=== PATIENT | male | born 1995 | race Caucasian/White ===

== ENCOUNTER 2023-12-17 08:23 | Emergency (ER) | payer BC, SELFPAY ==
[2023-12-17 08:44] VITALS: BP 153/91
[2023-12-17 09:35] VITALS: BP 100/86; BMI 24.6
[2023-12-17] MEDS: TORADOL 15 MG IV (09:58)
[2023-12-17 10:00] VITALS: BP 117/82
[2023-12-17 10:05] LABS: % Basophils 0.6 % (0-2); % Eosinophils 1.2 % (0-6); % Immature Granulocytes 0.4 % (0-0.5); % Lymphocytes 29.9 % (20.5-51.1); % Monocytes 11.8 % (1.7-9.3); % Neutrophils 56.1 % (42.2-75.2); Absolute Eosinophils 0.1 10^3/uL (0-0.7); Absolute Lymphocytes 1.5 10^3/uL (1.2-3.4); Absolute Monocytes 0.6 10^3/uL (0.1-0.6); Absolute Neutrophils 2.9 10^3/uL (1.4-6.5); Hematocrit 47.7 % (39.0-52.0); Hemoglobin 17.2 g/dL (13.0-18.0); Mean Corp Hgb Conc. 36.1 g/dL (33.0-37.0); Mean Corpuscular Hgb 30.8 pg (27.0-31.0); Mean Corpuscular Volume 85.5 fL (80.0-94.0); Mean Platelet Volume 10.6 fL (7.4-10.4); Nucleated Red Blood Cells % 0 % (-); Platelet Count 223 10^3/uL (130-400); Red Blood Cell Count 5.58 10^6/uL (4.70-6.10); Red Cell Dist. Width 11.6 % (11.5-14.5); White Blood Cell Count 5.1 10^3/uL (4.8-10.8)
[2023-12-17 10:18] LABS: Blood Urea Nitrogen 17 mg/dl (9-20); Calcium 10.2 mg/dl (8.4-10.2); Carbon Dioxide 20 mmol/L (22-30); Chloride 106 mmol/L (98-107); Estimated Creatinine Clearance > 125 ml/min; Glucose 92 mg/dl (70-99); Sodium 139 mmol/L (135-145); Troponin I < 0.012 ng/ml; eGFR > 60.00
[2023-12-17 11:00] VITALS: BP 126/89
--- NOTE | 2023-12-17 12:51 | ED.GENMED ---
History of Present Illness
General
Chief Complaint: Chest Pain
Source: patient
Exam Limitations: none
Time Seen by Provider: 12/17/23 09:29
Travel History
Have you had any contact with someone who has COVID-19?: No
Do you have any symptoms of coronavirus? Fever > 100 degrees, chills, cough, shortness of breath, sore throat, loss of taste or smell, muscle aches, or headache?: No
History of Present Illness
History of Present Illness:
28-year-old male presents with left-sided chest pain. Patient has had some arm pain for some time but states he has pain in the left chest when he breathes. He states when he lays back it hurts worse. He feels short of breath. No fevers. No
hemoptysis. No leg swelling.
Past History
Past History
ED Past Medical History: None
Social History
Tobacco: Vaping
Phy Exam
Physical Exam
Physical Exam:
CONSTITUTIONAL Patient alert and oriented to person, place and time. Well-appearing. Vital signs reviewed.
HEAD atraumatic, normocephalic.
EYES eyelids normal to inspection, Pupils equally round and reactive to light, Extraocular muscles intact, Conjunctiva normal, Sclera normal.
NECK normal range of motion, Trachea midline, no jugular venous distention.
RESPIRATORY CHEST No respiratory distress noted, Chest expansion equal, Bilateral breath sounds clear.
CARDIOVASCULAR regular rate and rhythm, Heart sounds normal.
BACK normal inspection, no obvious deformities, no rash
UPPER EXTREMITY range of motion normal, Motor strength normal, no cyanosis, no edema.
LOWER EXTREMITY range of motion normal, Motor strength normal, no cyanosis, no edema.
NEURO Speech normal, No focal motor deficits, Vicki coma scale 15, Memory normal, Cranial Nerves intact to screening exam.
SKIN skin warm, dry, and normal in color.
PSYCHIATRIC patient oriented to person place and time, Normal affect.
Scores
Heart Score for Chest Pain Patients
STEMI patient?: Not applicable
Course
Orders/Labs/Results
Orders:
Orders
12/17/23 08:26
EKG [Electrocardiogram (*1)] Urgent
Reason for Study: Chest Pain
EKG- Treatment ONCE
12/17/23 09:43
Basic Metabolic Panel Urgent
Complete Blood Count/With Diff Urgent
Troponin I Urgent
12/17/23 09:54
CT Chest Pe Study Urgent
Comment:
Reason For Exam: L pleuritic cp, sob, tachycardia
12/17/23 09:57
Ketorolac [Toradol] 15 mg .ROUTE .STK-MED ONE
12/17/23 09:58
Ketorolac [Toradol] 15 mg IV NOW STA
12/17/23 13:15
Heparin 10541 Units/250 ml 25,000 units in 250 ml IV PER PROTOCOL
Weight to be used for heparin protocol in kilograms (kg):: 79.9
Protocol:: DVT/PE
PTT Goal Range to be used:: PTT 73 to 111 seconds
Order type:: Initial
INITIAL Infusion Dose (UNITS/KG/hr) & then follow protocol:: 18 units/kg/hr
Infusion Dose in UNITS/hr & then follow protocol (UNITS/hr):: 1,400
INFUSION RATE in mL/hr & then follow protocol (mL/hr):: 14
For DVT/PE algorithm, re-bolus for low PTT?: Yes
PTT less than or equal to 64 seconds:: Re-bolus 80 units/kg (max 10,000units). Increase by 300 units/hr
(+ 3mL/hr)
PTT 64.1 to 72.9 seconds:: Re-bolus 40 units/kg (max 5,000 units). Increase by 200 units/hr
(+ 2mL/hr)
PTT 73 to 111 seconds:: Target Range. No change in rate.
PTT 111.1 to 130.9 seconds:: Decrease rate by 200 units/hr (- 2 mL/hr)
PTT 131 to 199.9 seconds:: HOLD for 1 hr. Then decrease by 200 units/hr (- 2mL/hr)
PTT greater than or equal to 200 seconds:: HOLD for 2 hrs & Notify Provider. Then decrease by 300 units/hr
(- 3mL/hr)
Lab follow-up:: Each change, PTT q6h until 2 consecutive are therapeutic. Then
PTT daily.
12/17/23 13:30
PTT Urgent
Comment: Obtain baseline before beginning heparin infusion if not already collected
12/17/23 14:27
Heparin 3,200 units IV PRN PRN
12/17/23 14:28
Heparin 6,400 units IV PRN PRN
12/17/23 14:36
Apixaban [Eliquis] 5 mg PO NOW STA
12/17/23 14:40
Apixaban [Eliquis] 10 mg PO NOW STA
Abnormal Lab Results
12/17/23
09:43
MPV 10.6 H fL
(7.4-10.4)
Monocytes % 11.8 H %
(1.7-9.3)
Carbon Dioxide 20 L mmol/L
(22-30)
12/17/23 09:43
12/17/23 09:43
Vital Signs
Initial and Last Documented VS:
Initial Vital Signs
Temp Pulse Resp BP Pulse Ox
98.2 F 102 22 153/91 99
12/17/23 08:44 12/17/23 08:44 12/17/23 08:44 12/17/23 08:44 12/17/23 08:44
Last Documented Vital Signs
Temp Pulse Resp BP Pulse Ox
98.2 F 74 16 125/83 99
12/17/23 08:44 12/17/23 13:32 12/17/23 11:00 12/17/23 13:32 12/17/23 13:32
MDM/Problems Addressed
Differential Diagnosis Includes:
Pulmonary embolism, pleuritis, pneumonia, pneumothorax
MDM/Problems Addressed:
Pulmonary embolism
*Radiology
Radiology exam reviewed: preliminary read by ED provider (No obvious pneumothorax) and radiology read reviewed
*Pulse Oximetry
Patient hypoxic: no
*EKG
Interpreted by ED Provider?: Yes
Interpretation: abnormal
Rate: tachycardiac
Rhythm: sinus
Jasper: normal axis
QRS Pattern: normal QRS
Ischemia: no ischemia
*Cake Stripper Interpretation
Rate: normal
Interpretation: normal
Rhythm: sinus
*Critical Care Note
Total Time (30-74mins, 75-104mins- exclusive of procedures): 30 minutes
Data Reviewed
Source: patient and family (Father)
Patient Management
Discussion with other providers: Hospitalist
Escalation/DeEscalation of care consider admission/obs:
Patient is hemodynamically stable but does have pulmonary embolism. No primary care doctor. IV heparin. Admit
Update Note
Update Note:
I was able to speak with pulmonology office who planned a follow-up for tomorrow at 10 AM. I think this is reasonable as the patient is quite stable. Seen by case management and given coupons for Eliquis
ED Attending Note
-
Portions of this chart may have been created with voice recognition software.� Occasional wrong word or��sound alike� substitutions may have occurred due to the inherent limitations of voice recognition software.
Discharge Plan
Departure
Patient Disposition: Home (Routine Discharge)
Date of Disposition: 12/17/23
Time of Disposition: 12:51
Admit to: Telemetry
Patient with high blood pressure during this ER visit?: No
Discharge Problem:
Pulmonary embolism
Instructions: Pulmonary embolism (blood clot in the lungs)
Prescriptions:
New
Eliquis DVT-PE Treat 30D Start 5 mg (74 tabs) tablets,dose pack
5 mg PO ONCE Qty: 74 0RF
Rx Instructions:
10mg BID x 7 days then 5mg BID
No Action
naproxen sodium [Aleve] 220 mg Tablet
440 mg PO HSPRN PRN (Reason: mild pain)
Referrals:
Yosef Nichols MD [Active] -
NONE,* [Family Provider] -
Activity Restrictions/Additional Instructions:
Return immediately for bleeding of any kind, trauma of any kind, shortness of breath, chest pain or any other concerns. Please see pulmonology tomorrow and show up at the office at 9:30 AM.
Interventions
Interventions:
*Risk Screen - Suicide Last Done: 12/17/23 08:44
*General Assessment Last Done: 12/17/23 08:44
*Neglect/Abuse Screening Last Done: 12/17/23 08:44
ED- Fall Risk Assessment Last Done: 12/17/23 09:35
*ED COVID-19 Vaccine History Last Done: 12/17/23 09:35
*Nursing Disposition Last Done: 12/17/23 15:07
ED- Cardiac Assessment Last Done: 12/17/23 09:35
Discharge Date and Time
Discharge Date/Time: 12/17/23 15:08
[2023-12-17 13:32] VITALS: BP 125/83
--- NOTE | 2023-12-17 13:32 | HPS.HSE ---
Family Physician
-
Family Physician: * NONE
Chief Complaint
-
Chest pain x 1 week
History of Present Illness
28-year-old male complaining of left-sided chest pain through to his back and increased with inspiration for the past week. He states he woke up at 1 AM with severe pain. He also complains of some shortness of breath. He reports 1 week ago he was
seen by cardiology Dr. Lewis at [facility] and had a Holter monitor placed he has a follow-up appointment next Sunday. He denies any recent illness including flu or COVID. He denies fever, chills, palpitations, abdominal pain, nausea,
vomiting, diarrhea, urinary symptoms, injury, leg swelling. He has past medical history of nicotine vaping, cigarette smoking, MRSA skin, benign mole removal to sternal chest, tear duct opening procedure as child
Medical History
Past Medical History
Past Medical History: Reports Other (nicotine vaping, cigarette smoking, MRSA skin,)
Past Surgical History: Reports Other ( benign mole removal to sternal chest, tear duct opening procedure as child)
Social History
Tobacco: Vaping (1 pack/day x 16 years)
Alcohol: None
Drug: None
Personal: Single
Living: Alone
Employment: Employed ([employer])
Family History
Family History: Other (Father mother healthy)
Allergies / Home Medications
Allergies reflects when Allergies were last updated in [employer].
Home Medications with original date entered in [employer]
Allergy/Medication List:
Allergies
Allergy/AdvReac Type Severity Reaction Status Date / Time
sulfamethoxazole Allergy Tongue Verified 12/17/23 09:37
[From Bactrim] Swelling
trimethoprim [From Bactrim] Allergy Tongue Verified 12/17/23 09:37
Swelling
Home Medications
naproxen sodium 220 mg tablet (Aleve) 440 mg PO HSPRN PRN mild pain 12/17/23
Review of Systems
-
History Source: Patient and Family (Father at bedside)
A 12 point ROS was completed and negative except as noted: Yes
Constitutional: Denies Fever, Fatigue or Chills
EENT: Denies Sore Throat or Mouth Swelling
Respiratory: Reports Trouble Breathing (With activity); Denies Cough
Cardiac: Reports Chest Pain (Left-sided with inspiration); Denies Diaphoresis, Palpitations or Syncope
Abdomen/GI: Denies Abdominal Pain, Nausea, Vomiting, Diarrhea, Constipated or Bloody Stools
: Denies Dysuria, Frequency, Flank Pain, Incontinence, Difficulty Voiding or Urgency
Musculoskeletal: Denies Joint Pain or Edema
Skin: Denies Itching or Rash
Neurological: Denies Dizzy, Headache or Weakness
Endocrine: Reports No Symptoms
Hematologic/Lymphatic: Reports No Symptoms
Psych: Reports Calm
Physical Exam
Vital Signs
Vital Signs
Temp Pulse Resp BP Pulse Ox
98.2 F 77 16 126/89 97
12/17/23 08:44 12/17/23 11:00 12/17/23 11:00 12/17/23 11:00 12/17/23 11:00
Physical Exam
General: Comfortable and Conversant; No Fever or Chills
HEENT: NormoCephalic, Anicteric and PERRLA
Respiratory: Clear; No Wheezes, Rales or Rhonchi
Cardiac: S1/S2 and Regular Rhythm; No Murmur, Rub, Gallop or Peripheral Edema
GI: Soft, Non Tender, Non Distended, Normal Bowel Sounds and No Hepatosplenomegaly
Genito-urinary: Deferred by me
Musculoskeletal: No Clubbing, No Cyanosis and No Edema
Skin: Warm and Dry; No Rash or Jaundice
Neuro: AO x 3, No Motor Deficits, Nonfocal/grossly intact and No Sensory Deficits; No Slurred Speech or Facial Droop
Psych: Calm
Laboratory Results
-
12/17/23 09:43
12/17/23 09:43
Laboratory Results
Total Bilirubin Cancelled 12/17/23 09:43
AST Cancelled 12/17/23 09:43
ALT Cancelled 12/17/23 09:43
Alkaline Phosphatase Cancelled 12/17/23 09:43
Troponin I < 0.012 ng/ml 12/17/23 09:43
Impression/Plan
-
Impression/plan:
Admit to telemetry
Chest pain secondary to left lower lobe PE
99% RA
-Case management consult for AC therapy
CT PE study: Suspected small acute to subacute left lower lobe PE no evidence of heart strain
EKG: Sinus tach 108 bpm, QTc 452 MS otherwise normal
#Nicotine abuse
-1 pack/day x 16 years prior vaping 2 weeks ago switched to cigarettes again
Cessation advised
Full code
[2023-12-17 13:52] LABS: APTT 29.4 Sec (23.4-35.0)
--- NOTE | 2023-12-17 14:28 | CM ---
CM was consulted for Heart Health lee check. CM called patient's [facility] and confirmed $120 copay. CM updated patient. CM provided patient with 30 day free trial coupon and $10 Copay Elqiuis Coupong. patient is agreeable to medication plan. CM updated ED
physician via TT.
[2023-12-17] MEDS: ELIQUIS 10 MG PO (14:50)
== END 2023-12-17 15:08 | disposition home or self-care (01) ==
LOC: EMR 08:23
PROVIDERS: EMERGENCY PHYSICIAN Emergency Medicine
DX: I26.99 Other pulmonary embolism without acute cor pulmonale (principal); F17.290 Nicotine dependence, other tobacco product, uncomplicated
CPT/HCPCS: 99291; 96374; 71275; 80048; 84484; 85025; 85730; 93005; Q9967

== ENCOUNTER 2024-01-16 20:53 | Emergency (ER) | payer SELFPAY ==
[2024-01-16 21:03] VITALS: BP 134/96
[2024-01-16] MEDS: DILAUDID 1 MG IV (21:04)
[2024-01-16 21:07] LABS: Glucose - Point of Care 90 mg/dl (70-99)
[2024-01-16 21:13] LABS: % Basophils 0.2 % (0-2); % Eosinophils 0.1 % (0-6); % Immature Granulocytes 0.4 % (0-0.5); % Monocytes 7.7 % (1.7-9.3); % Neutrophils 77.6 % (42.2-75.2); Absolute Lymphocytes 1.5 10^3/uL (1.2-3.4); Absolute Monocytes 0.8 10^3/uL (0.1-0.6); Absolute Neutrophils 8.3 10^3/uL (1.4-6.5); Hematocrit 45.2 % (39.0-52.0); Hemoglobin 16.6 g/dL (13.0-18.0); Mean Corp Hgb Conc. 36.7 g/dL (33.0-37.0); Mean Corpuscular Hgb 30.6 pg (27.0-31.0); Mean Corpuscular Volume 83.2 fL (80.0-94.0); Mean Platelet Volume 10.3 fL (7.4-10.4); Nucleated Red Blood Cells % 0 % (-); Platelet Count 204 10^3/uL (130-400); Red Blood Cell Count 5.43 10^6/uL (4.70-6.10); Red Cell Dist. Width 12.3 % (11.5-14.5); White Blood Cell Count 10.7 10^3/uL (4.8-10.8)
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
[2024-01-16 21:15] VITALS: BP 133/92
[2024-01-16 21:22] LABS: INR 1.08
[2024-01-16 21:30] VITALS: BP 142/93
[2024-01-16 21:34] LABS: ALT (SGPT) 28 U/L (0-50); AST (SGOT) 36 U/L (17-59); Albumin 5.3 g/dl (3.5-5.0); Alkaline Phosphatase 73 U/L (38-126); Blood Urea Nitrogen 9 mg/dl (9-20); Calcium 10.3 mg/dl (8.4-10.2); Carbon Dioxide 26 mmol/L (22-30); Chloride 100 mmol/L (98-107); Glucose 102 mg/dl (70-99); Potassium 3.9 mmol/L (3.5-5.1); Sodium 139 mmol/L (135-145); Total Bilirubin 0.8 mg/dl (0.2-1.3); Total Protein 8.4 g/dl (6.3-8.2); eGFR > 60.00
[2024-01-16 21:35] LABS: Alcohol 147 mg/dl
[2024-01-16] MEDS: NSS 1000 IV (22:06)
[2024-01-16] MEDS: PERCOCET 5/325 1 TABLET PO (23:13)
[2024-01-17 00:03] VITALS: BP 94/61
[2024-01-17 00:07] VITALS: BP 111/66
[2024-01-17 00:15] VITALS: BP 115/73
[2024-01-17 00:30] VITALS: BP 115/64
[2024-01-17 00:39] VITALS: BP 116/68
== END 2024-01-17 01:37 | disposition home or self-care (01) ==
LOC: EMR 20:53
PROVIDERS: EMERGENCY PHYSICIAN Emergency Medicine
DX: S80.212A Abrasion, left knee, initial encounter (principal); S90.512A Abrasion, left ankle, initial encounter; M25.572 Pain in left ankle and joints of left foot; F17.290 Nicotine dependence, other tobacco product, uncomplicated; V29.99XA Rider (driver) (passenger) of other motorcycle injured in unspecified traffic accident, initial encounter; Y92.410 Unspecified street and highway as the place of occurrence of the external cause
CPT/HCPCS: 99284; 70450; 71260; 72125; 73590; 73630; 74177; 80053; 82077; 82962; 85025; 85610; 86850; 86900; 86901; 93005; Q9967